=== PATIENT | female | born 1935 | race Caucasian/White ===

== ENCOUNTER 2018-04-12 09:03 | Emergency (ER) | payer MEDICARE, BC ==
--- OUTSIDE RECORDS SUMMARY | 2018-04-12 09:52 | XMS REPORT | Continuity of Care Document ---
:1935 External Reference #:[id number] Author Name Prieto Rehman M.D. Address [address] [facility] [address] [place] [address] Care Team Providers Name Role Phone HCP/LW on file Primary Care Physician Unavailable Payers Type Date Identification Numbers Payment Provider Subscriber Effective: Policy Number: [id number] [facility] PayID[facility] [id number] [address] [facility] [place] [address] Effective: Policy Number: [place] Ind/Ppo/Hmo/Pos Nusrat Reid 2016 [id number] [facility] PayID: [id number] [address] [address] [place] [address] Advance Directives Description No Information Available Problems Date Description Provider Status Onset: 06/02/2015 Seasonal allergic rhinitis Dylon Healy M.D. Active Note: environmental and animal allergens Onset: 06/02/2015 Asthma Dylon Healy M.D. Active Onset: 06/02/2015 Age related macular degeneration Dylon Healy M.D. Active Note: very early on preventive care Onset: 07/27/2015 Mitral valve disorder Dylon Healy M.D. Active Onset: 07/27/2015 Aortic valve disorder Dylon Healy M.D. Active Onset: 07/27/2015 Essential hypertension Dylon Healy M.D. Active Onset: 06/04/2017 Hyperlipidemia Gloria Mcdonald PA Active Onset: 06/19/2017 Paroxysmal supraventricular Hektor, Gloria, PA Active tachycardia Onset: 06/19/2017 Atrial fibrillation Gloria Mcdonald PA Active Family History Date Family Member(s) Problem(s) Comments Father due to Bladder Cancer () Father due to Aortic Aneurysm () - age 69 Mother due to CHF () - age 90 First Daughter Celiac Disease Social History Type Date Description Comments Sex Unknown Education Highest Level Completed Post Grad Marital Status Sanchez has prost ca and a fib s/p- prostatectomy and macular degen retired from [employer] ([employer]) 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, [place], [place]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 Abuse No history of abuse ETOH Use Occassional Alcohol Tobacco Use Start: Unknown Non Smoker Smoking Status Reviewed: Non Smoker 06/04/17 Exercise Type/Frequency Exercises regularly Walking, golf Sun Exposure Uses sunscreen Seat Belt/Car Seat Seat Belt Use - Yes Contraceptive Methods None Age 1st [place] 22 Years Old Additional Info Sexual preference is men Allergies, Adverse Reactions, Alerts Description No Known Drug Allergies Medications Medication Date Status Form Strength Qnty SIG Indications Ordering Provider Chalino 03/17 Active Tablets 5mg 1 tablet Walker by mouth Yfn, DO twice daily Triamcinolone 09/23 Active Cream 0.1% as Yentzer, Acetonide directed Grady MARX as needed Betamethasone 09/04 Active Cream 0.1% 45gm apply to [place], Valerate affected Andres, D.O. areas twice a day as needed Simvastatin 06/04 Active Tablets 20mg 90tab 1 tab by E78.5 Sherie s mouth Prieto, daily at M.D. night to lower cholestero l Areds 05/23 Active daily Metoprolol 11/26 Active Tablets ER 25mg 90tab take 1 Silcoff, Succinate ER 24HR s tablet by Prieto, mouth once M.D. daily Chlorthalidone 07/26 Active Tablets 25mg 90tab take 1 I10 Silcoff, s tablet Prieto, daily for M.D. blood pressure Preservision 06/01 Active Dylon AAlla Rell Healy Symbicort 11/12 Hx Aerosol 160-4.5mc inhale 2 g/Act puffs by - mouth 07/04 twice a /2018 day gargle after use Spiriva 11/12 Hx Aerosol 2.5mcg/Ac two Unknown Respimat t inhalation - s (5mcg) 09/03 once daily (maximum: 2 inhalation s per 24 hours). 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 08/07 Brenda Allergy 06/01 Hx Tablets 180mg otc Dylon Jameson /2015 Carol Healy M.D. 08/07 Ipratropium 00 Hx Solution 0.06% Unknown [place] /0000 - 09/03 Betamethasone Hx Ointment 0.1% Vaishnavicoff, Valerate /0000 Carol Moreau M.D. 09/[address] 20mg Unknown /0000 - 09/03 Immunizations CPT Code Status Date Vaccine Lot # [id number] Given 12/09/2017 Influenza Vaccine, Inactivated, Subunit, [id number] Adjuvanted, For Intrmusc 34928 Given 09/25/2017 Shingrix Zoster (Shingles) Vaccine (HZV) [id number] Recomb,Subnit,Adjuvanted 38261 Given 06/04/2017 Shingrix Zoster (Shingles) Vaccine (HZV) [id number] Recomb,Subnit,Adjuvanted 61082 Given 11/13/2016 Influenza Virus Vaccine, Quadrivalent, Split, [id number] Preservative Free 01567 Given 08/08/2016 Pneumococcal Immunization [id number] 13027 Given 11/10/2015 Influenza Vaccine Split Virus Preservative Free Im [id number] Use 74289 Given 07/21/2015 Adacel or Boostrix, TDaP [id number] 18735 Given 05/02/2015 Prevnar 13 38130 Given 07/20/2012 Zostavax Vital Signs Date Vital Result Comment 03/18/2018 9:34am BP Systolic 130 mmHg BP Diastolic 80 mmHg Height 62.50 inches 5'2.50" Weight 135.00 lb BMI (Body Mass Index) 24.3 kg/m2 12/09/2017 10:01am BP Systolic 134 mmHg BP Diastolic 80 mmHg Weight 135.00 lb 10/28/2017 2:34pm BP Systolic 120 mmHg BP Diastolic 70 mmHg Weight 136.00 lb 09/04/2017 11:20am BP Systolic 134 mmHg BP Diastolic 70 mmHg Height 62.50 inches 5'2.50" Weight 135.00 lb BMI (Body Mass Index) 24.3 kg/m2 06/04/2017 11:58am BP Systolic 149 mmHg BP Diastolic 85 mmHg BP Systolic Recheck 116 mmHg BP Diastolic Recheck 80 mmHg Weight 135.00 lb 11/13/2016 9:37am BP Systolic 118 mmHg BP Diastolic 76 mmHg Weight 134.00 lb 08/08/2016 11:24am BP Systolic 122 mmHg BP Diastolic 80 mmHg Height 62.5 inches 5'2.50" Weight 133.00 lb BMI (Body Mass Index) 23.9 kg/m2 02/09/2016 11:27am BP Systolic 138 mmHg k BP Diastolic 62 mmHg k Heart Rate 70 /min rrr Height 62.5 inches 5'2.50" Weight 135.00 lb BMI (Body Mass Index) 24.3 kg/m2 12/04/2015 11:00am BP Systolic 143 mmHg BP Diastolic 69 mmHg Heart Rate 64 /min Body Temperature 97.9 F Weight 135.00 lb 11/10/2015 10:04am BP Systolic 128 mmHg BP Diastolic 60 mmHg BP Systolic Standing Resting Right Arm 138 mmHg BP Diastolic Standing Resting Right Arm 70 mmHg Heart Rate 70 /min Respiratory Rate 16 /min Weight 136.00 lb 08/10/2015 11:46am BP Systolic 130 mmHg k BP Diastolic 70 mmHg k Heart Rate 90 /min rrrr Respiratory Rate 16 /min 07/27/2015 11:40am BP Systolic 168 mmHg high also in [place] BP Diastolic 85 mmHg high also in [place] Heart Rate 80 /min 07/21/2015 1:50pm BP Systolic 166 mmHg BP Diastolic 80 mmHg Weight 137.00 lb 06/02/2015 2:58pm Heart Rate 70 /min rrr Height 62.75 inches 5'2.75" Weight 139.00 lb BMI (Body Mass Index) 24.8 kg/m2 Results Test Date Facility Test Result H/L Range Note Xray 03/18/2018 [facility] Medicine X-Ray, Knee, <pending> 3 Views, RT Comp Metabolic 12/10/2017 [facility] Sodium 139 mmol/L N 135-145 Panel [phone] Potassium 3.9 mmol/L N 3.5-5.0 Chloride 102 mmol/L N 101-111 Co2 Carbon Dioxide 32 mmol/L N 22-32 Anion Gap 5 mmol/L N 2-11 Glucose 86 mg/dL N 70-100 Blood Urea Nitrogen 15 mg/dL N 6-24 Creatinine 0.63 mg/dL N 0.51-0.95 BUN/Creatinine Ratio 23.8 High 8-20 Calcium 8.8 mg/dL N 8.6-10.3 Total Protein 6.3 g/dL Low 6.4-8.9 Albumin 3.1 g/dL Low 3.2-5.2 Globulin 3.2 g/dL N 2-4 Albumin/Globulin Ratio 1.0 N 1-3 Total Bilirubin 0.50 mg/dL N 0.2-1.0 Alkaline Phosphatase 90 U/L N 34-104 Alt 15 U/L N 7-52 Ast 22 U/L N 13-39 Egfr Non- 90.9 >60 Egfr 110.0 >60 1 Lipid Profile (Trig/Chol/HDL) 12/10/2017 [facility] Triglycerides 122 mg/dL 2 [phone] Cholesterol 181 mg/dL 3 HDL Cholesterol 66.9 mg/dL 4 LDL Cholesterol 90 mg/dL 5 Xray 10/28/2017 [facility] X-Ray, Tib/Fib 2 <pending> Views, Right Comp Metabolic 06/02/2017 [facility] Sodium 142 mmol/L N 139-145 Panel [phone] Potassium 4.0 mmol/L N 3.5-5.0 Chloride 104 mmol/L N 101-111 Co2 Carbon Dioxide 31 mmol/L N 22-32 Anion Gap 7 mmol/L N 2-11 Glucose 82 mg/dL N 70-100 Blood Urea Nitrogen 17 mg/dL N 6-24 Creatinine 0.66 mg/dL N 0.51-0.95 BUN/Creatinine Ratio 25.8 High 8-20 Calcium 8.8 mg/dL N 8.6-10.3 Total Protein 6.3 g/dL Low 6.4-8.9 Albumin 3.1 g/dL Low 3.2-5.2 Globulin 3.2 g/dL N 2-4 Albumin/Globulin Ratio 1.0 N 1-3 Total Bilirubin 0.40 mg/dL N 0.2-1.0 Alkaline Phosphatase 88 U/L N 34-104 Alt 13 U/L N 7-52 Ast 22 U/L N 13-39 Egfr Non- 86.2 >60 Egfr 110.8 >60 6 Lipid Profile (Trig/Chol/HDL) 06/02/2017 [facility] Triglycerides 105 mg/dL 7 [phone] Cholesterol 230 mg/dL 8 HDL Cholesterol 65.7 mg/dL 9 LDL Cholesterol 143 mg/dL 10 Laboratory test finding 02/09/2016 [facility] Magnesium 2.2 mg/dL N 1.9-2.7 [phone] Basic Metabolic Panel 02/09/2016 [facility] Sodium 137 mmol/L N 133- 145 [phone] Potassium 3.9 mmol/L N 3.5-5.0 Chloride 99 mmol/L Low 101-111 Co2 Carbon Dioxide 32 mmol/L N 22-32 Anion Gap 6 mmol/L N 2-11 Glucose 81 mg/dL N 70-100 Blood Urea Nitrogen 15 mg/dL N 6-24 Creatinine 0.68 mg/dL N 0.51-0.95 BUN/Creatinine Ratio 22.1 High 8-20 Calcium 8.7 mg/dL N 8.6-10.3 Egfr Non- 83.7 N >60 Egfr 107.6 N >60 11 Culture Urine Inhouse 12/04/2015 In House Colonies 12/04-12/05 12 Urine Micro Inhouse 12/04/2015 In House Ua WBC 10-15 Ua RBC 2-4 Ua Casts - Ua Epi 0-1 Ua Other few clumps of WBC Ua Glucose - Ua Bilirubin - Ua Ketones - Ua Specific [place] 1.025 Ua Blood 2+ Ua PH 6.5 Ua Protein - Ua Urobilinogen - Ua Nitrite - Ua Leukocytes 2+ Urine Micro Inhouse 11/10/2015 In House Ua WBC - Ua RBC - Ua Casts - Ua Epi - Ua Other - Ua Glucose - Ua Bilirubin - Ua Ketones - Ua Specific [place] 1.005 Ua Blood - Ua PH 6.0 Ua Protein - Ua Urobilinogen - Ua Nitrite - Ua Leukocytes - Xray 11/10/2015 [facility] X-Ray, Chest, 2 wnl 13 Views Basic Metabolic 08/10/2015 [facility] Sodium 138 mmol/L N 133-145 Panel [phone] Potassium 3.9 mmol/L N 3.5-5.0 Chloride 100 mmol/L Low 101-111 Co2 Carbon Dioxide 30 mmol/L N 22-32 Anion Gap 8 mmol/L N 2-11 Glucose 85 mg/dL N 70-100 Blood Urea Nitrogen 22 mg/dL N 6-24 Creatinine 0.59 mg/dL N 0.51-0.95 BUN/Creatinine Ratio 37.3 High 8-20 Calcium 9.1 mg/dL N 8.6-10.3 Egfr Non- 98.6 N >60 Egfr 126.8 N >60 14 Comp Metabolic Panel 07/21/2015 [facility] Sodium 138 mmol/L N 133- 145 [phone] Potassium 3.9 mmol/L N 3.5-5.0 Chloride 102 mmol/L N 101-111 Co2 Carbon Dioxide 30 mmol/L N 22-32 Anion Gap 6 mmol/L N 2-11 Glucose 91 mg/dL N 70-100 Blood Urea Nitrogen 11 mg/dL N 6-24 Creatinine 0.61 mg/dL N 0.51-0.95 BUN/Creatinine Ratio 18.0 N 8-20 Calcium 8.8 mg/dL N 8.6-10.3 Total Protein 6.7 g/dL N 6.4-8.9 Albumin 3.4 g/dL N 3.2-5.2 Globulin 3.3 g/dL N 2-4 Albumin/Globulin Ratio 1.0 N 1-3 Total Bilirubin 0.40 mg/dL N 0.2-1.0 Alkaline Phosphatase 81 U/L N 34-104 Alt 14 U/L N 7-52 Ast 21 U/L N 13-39 Egfr Non- 94.9 N >60 Egfr 122.0 N >60 15 CBC Auto Diff 07/21/2015 [facility] White Blood Count 5.7 10^3/uL N 3.5-10.8 [phone] Red Blood Count 4.07 10^6/uL N 4.0-5.4 Hemoglobin 12.9 g/dL N 12.0-16.0 Hematocrit 40 % N 35-47 Mean Corpuscular Volume 98 fL High 80-97 Mean Corpuscular Hemoglobin 32 pg High 27-31 Mean Corpuscular HGB Conc 32 g/dL N 31-36 Red Cell Distribution Width 13 % N 10.5-15 Platelet Count 216 10^3/uL N 150-450 Mean Platelet Volume 9 um3 N 7.4-10.4 Abs Neutrophils 3.8 10^3/uL N 1.5-7.7 Abs Lymphocytes 1.2 10^3/uL N 1.0-4.8 Abs Monocytes 0.5 10^3/uL N 0-0.8 Abs Eosinophils 0 10^3/uL N 0-0.6 Abs Basophils 0.1 10^3/uL N 0-0.2 Abs Nucleated RBC 0 10^3/uL N Granulocyte % 67.1 % N 38-83 Lymphocyte % 21.3 % Low 25-47 Monocyte % 9.7 % High 1-9 Eosinophil % 0.8 % N 0-6 Basophil % 1.1 % N 0-2 Nucleated Red Blood Cells % 0 N Order 07/21/2015 [facility] EKG W/ Reading NSR wnl 1 Because ethnic data is not always readily available, this report includes an eGFR for both -Americans and non- Americans. The National Kidney Disease Education Program (NKDEP) does not endorse the use of the MDRD equation for patients that are not between the ages of 18 and 70, are , have extremes of body size, muscle mass, or nutritional status, or are non- or non-. According to the National Kidney Foundation, irrespective of diagnosis, the stage of the disease is based on the level of kidney function: Stage Description GFR(mL/min/1.73 m(2)) 1 Kidney damage with normal or decreased GFR 90 2 Kidney damage with mild decrease in GFR 60-89 3 Moderate decrease in GFR 30-59 4 Severe decrease in GFR 15-29 5 Kidney failure <15 (or dialysis) 2 Desirable: <150 Borderline High: 150-199 High: 200-499 Very High: >500 3 Desirable: <200 Borderline High: 200-239 High: >239 4 Low: <40 Desirable: 40-60 High: >60 5 Desirable: <100 Near Optimal: 100-129 Borderline High: 130-159 High: 160-189 Very High: >189 6 Because ethnic data is not always readily available, this report includes an eGFR for both -Americans and non- Americans. The National Kidney Disease Education Program (NKDEP) does not endorse the use of the MDRD equation for patients that are not between the ages of 18 and 70, are , have extremes of body size, muscle mass, or nutritional status, or are non- or non-. According to the National Kidney Foundation, irrespective of diagnosis, the stage of the disease is based on the level of kidney function: Stage Description GFR(mL/min/1.73 m(2)) 1 Kidney damage with normal or decreased GFR 90 2 Kidney damage with mild decrease in GFR 60-89 3 Moderate decrease in GFR 30-59 4 Severe decrease in GFR 15-29 5 Kidney failure <15 (or dialysis) 7 Desirable: <150 Borderline High: 150-199 High: 200-499 Very High: >500 8 Desirable: <200 Borderline High: 200-239 High: >239 9 Low: <40 Desirable: 40-60 High: >60 10 Desirable: <100 Near Optimal: 100-129 Borderline High: 130-159 High: 160-189 Very High: >189 11 Because ethnic data is not always readily available, this report includes an eGFR for both -Americans and non- Americans. The National Kidney Disease Education Program (NKDEP) does not endorse the use of the MDRD equation for patients that are not between the ages of 18 and 70, are , have extremes of body size, muscle mass, or nutritional status, or are non- or non-. According to the National Kidney Foundation, irrespective of diagnosis, the stage of the disease is based on the level of kidney function: Stage Description GFR(mL/min/1.73 m(2)) 1 Kidney damage with normal or decreased GFR 90 2 Kidney damage with mild decrease in GFR 60-89 3 Moderate decrease in GFR 30-59 4 Severe decrease in GFR 15-29 5 Kidney failure <15 (or dialysis) 12 void, turbid, yellow 13 wnl 14 Because ethnic data is not always readily available, this report includes an eGFR for both -Americans and non- Americans. The National Kidney Disease Education Program (NKDEP) does not endorse the use of the MDRD equation for patients that are not between the ages of 18 and 70, are , have extremes of body size, muscle mass, or nutritional status, or are non- or non-. According to the National Kidney Foundation, irrespective of diagnosis, the stage of the disease is based on the level of kidney function: Stage Description GFR(mL/min/1.73 m(2)) 1 Kidney damage with normal or decreased GFR 90 2 Kidney damage with mild decrease in GFR 60-89 3 Moderate decrease in GFR 30-59 4 Severe decrease in GFR 15-29 5 Kidney failure <15 (or dialysis) 15 Because ethnic data is not always readily available, this report includes an eGFR for both -Americans and non- Americans. The National Kidney Disease Education Program (NKDEP) does not endorse the use of the MDRD equation for patients that are not between the ages of 18 and 70, are , have extremes of body size, muscle mass, or nutritional status, or are non- or non-. According to the National Kidney Foundation, irrespective of diagnosis, the stage of the disease is based on the level of kidney function: Stage Description GFR(mL/min/1.73 m(2)) 1 Kidney damage with normal or decreased GFR 90 2 Kidney damage with mild decrease in GFR 60-89 3 Moderate decrease in GFR 30-59 4 Severe decrease in GFR 15-29 5 Kidney failure <15 (or dialysis) Procedures Date Code Description Status 03/18/2018 90563 X-Ray Knee,Ap&Lateral Oblique Views Completed 03/18/2018 41511 X-Ray Knee,Ap&Lateral Oblique Views Completed 10/28/2017 91439 X-Ray Tibia And Fibula,Ap & Lateral Views Completed 10/28/2017 88706 X-Ray Tibia And Fibula,Ap & Lateral Views Completed 06/06/2017 03327 Dexa Bone Density Study One Or More Sites Axial Completed Skeleton 06/06/2017 [id number] Bone Mineral Density Test Completed 06/01/2017 41352309 Mammogram Completed 11/11/2015 21171 ECG Monitor/Review & Interpretation, W/Visual Completed Superimpos Scan 11/11/2015 12722 ECG Monitor/Recording W/Scanning Completed 11/10/2015 93535 ECG Monitor/Review & Interpretation, W/Visual Completed Superimpos Scan 11/10/2015 81579 ECG Monitor/Recording W/Scanning Completed 11/10/2015 96987 Electrocardiogram Complete Completed 11/10/2015 51871 X-Ray Chest Two Views Completed 07/21/2015 29544 Electrocardiogram Complete Completed 07/21/2015 72580 X-Ray Chest Two Views Completed Encounters Type Date Location Provider Dx Diagnosis Office Visit 03/18/2018 Main Office Gloria Mcdonald PA I10 Essential ( primary) 9:20a hypertension M25.561 Pain in right knee H91.93 Unspecified hearing loss, bilateral I48.91 Unspecified atrial fibrillation Office Visit 12/09/2017 9:45a Main Office Gloria Mcdonald PA I10 Essential (primary) hypertension I48.91 Unspecified atrial fibrillation H35.30 Unspecified macular degeneration Z23 Encounter for immunization Office Visit 10/28/2017 2:30p Main Office Gloria Mcdonald PA M79.661 Pain in right lower leg S80.11xA Contusion of right lower leg, initial encounter W20.8xxA Oth cause of strike by thrown, projected or fall obj, init Y92.[address] in single-family (private) house as place Office Visit 09/04/2017 11:05a Main Office Gloria Mcdonald PA I10 Essential (primary) hypertension I48.91 Unspecified atrial fibrillation L57.0 Actinic keratosis H35.30 Unspecified macular degeneration Office Visit 06/04/2017 11:20a Main Office Gloria Mcdonald PA I10 Essential (primary) hypertension E78.5 Hyperlipidemia, unspecified Z23 Encounter for immunization Z12.31 Encntr screen mammogram for malignant neoplasm of breast Z13.820 Encounter for screening for osteoporosis Z41.8 Encntr for oth proc for purpose oth than [facility] E78.00 Pure hypercholesterolemia, unspecified Office Visit 11/13/2016 9:20a Main Office Gloria Mcdonald PA I10 Essential (primary) hypertension Z23 Encounter for immunization Office Visit 08/08/2016 11:15a Main Office Dylon Jameson I1Bud Essential ( primary) Rell Healy hypertension I47.1 Supraventricular tachycardia I34.0 Nonrheumatic mitral (valve) insufficiency Z71.89 Other specified counseling Z23 Encounter for immunization Z41.8 Encntr for oth proc for purpose oth than [facility] Office Visit 02/09/2016 11:15a Main Office Dylon Healy, E83.42 Hypomagnesemia Rell I10 Essential (primary) hypertension I47.1 Supraventricular tachycardia J31.0 Chronic rhinitis Office Visit 12/04/2015 10:15a Main Office Prieto Rehman M.D. R30.0 Dysuria R35.0 Frequency of micturition N30.00 Acute cystitis without hematuria Office Visit 11/10/2015 10:00a Main Office Dylon Nunes Essential ( primary) Rell Healy hypertension I34.0 Nonrheumatic mitral (valve) insufficiency I35.1 Nonrheumatic aortic (valve) insufficiency R07.89 Other chest pain Z23 Encounter for immunization R00.2 Palpitations Office Visit 08/10/2015 11:40a Main Office Dylon Jameson I1Bud Essential ( primary) Rell Healy hypertension Office Visit 07/27/2015 11:40a Main Office Dylon Jameson I34.0 Nonrheumatic mitral Rell Healy (valve) insufficiency I35.1 Nonrheumatic aortic (valve) insufficiency I10 Essential (primary) hypertension I36.1 Nonrheumatic tricuspid (valve) insufficiency Office Visit 07/21/2015 1:45p Main Office Dylon Jameson H26.9 Unspecified Rell Healy cataract J30.1 Allergic rhinitis due to pollen Z71.89 Other specified counseling R01.1 Cardiac murmur, unspecified Z01.818 Encounter for other preprocedural examination Z23 Encounter for immunization J45.20 Mild intermittent asthma, uncomplicated E78.0 Pure hypercholesterolemia Office Visit 06/02/2015 2:30p Main Office Dylon Healy, J45.998 Other asthma Rell J30.1 Allergic rhinitis due to pollen Plan of Treatment 10/28/2017 - Gloria Mcdonald, PAM79.661 Pain in right lower legComments:Right barriga contusion, Xray negative. Recommended rest and elevation, tylenol if needed for pain. Recheck if sx not improving.S80.11xA Contusion of right lower leg, initial yxeooaftwG20.8xxA Other cause of strike by thrown, projected or falling object, initial usyxqxgnqV72.[address] in single-family ( private) house as the place of occurrence of the external cause
[2018-04-12 10:00] VITALS: BP 120/54
--- NOTE | 2018-04-12 10:17 | UC ---
Respiratory Complaint HPI - HPI Summary HPI Summary: 82-year-old woman comes in with a chief complaint of 2 days of upper respiratory tract infection symptoms chest congestion and wheezing. No fevers or chills. No sore throat. She does have some rhinorrhea. No ear pain. Has not tried any [id number] medications. Denies any chest pain or calf swelling or pain. Patient has had asthma symptoms in the past and she has used inhalers in the past. Not a smoker. - History of Current Complaint Chief Complaint: UCRespiratory Stated Complaint: UPPER RESPITORY Time Seen by Provider: 04/12/18 10:08 Pain Intensity: 0 - Allergies/Home Medications Allergies/Adverse Reactions: Allergies Allergy/AdvReac Type Severity Reaction Status Date / Time No Known Allergies Allergy Verified 01/26/16 21:34 Home Medications: Home Medications Apixaban* [Eliquis*] 5 mg PO BID 04/12/18 [History Confirmed 04/12/18] Simvastatin 1 dose PO DAILY 04/12/18 [History Confirmed 04/12/18] PMH/Surg Hx/FS Hx/Imm Hx Previously Healthy: Yes Cardiovascular History: Hypertension Respiratory History: Asthma Other History Of: Negative For: HIV, Hepatitis B, Hepatitis C, Anticoagulant Therapy - Surgical History Surgical History: Yes Surgery Procedure, Year, and Place: B/L CATARACT SX - Family History Known Family History: Positive: Cardiac Disease Negative: Hypertension - Social History Alcohol Use: Occasionally Substance Use Type: None Smoking Status (MU): Never Smoked Tobacco Review of Systems All Other Systems Reviewed And Are Negative: Yes Constitutional: Positive: Negative Skin: Positive: Negative Eyes: Positive: Negative ENT: Positive: Nasal Discharge Respiratory: Positive: Cough, Other - wheezing Cardiovascular: Positive: Negative Gastrointestinal: Positive: Negative Motor: Positive: Negative Neurovascular: Positive: Negative Musculoskeletal: Positive: Negative Neurological: Positive: Negative Psychological: Positive: Negative Is Patient Immunocompromised?: No Physical Exam Triage Information Reviewed: Yes Appearance: No Pain Distress, Well-Nourished, Ill-Appearing - mild Vital Signs: Initial Vital Signs Temp 98.7 F 04/12/18 09:56 Pulse 96 04/12/18 09:56 Resp 17 04/12/18 09:56 BP 120/54 04/12/18 09:56 Pulse Ox 96 04/12/18 09:56 Vital Signs Reviewed: Yes Eye Exam: Normal Eyes: Positive: Conjunctiva Clear ENT: Positive: Pharynx normal, Nasal congestion, Nasal drainage, TMs normal Neck exam: Normal Neck: Positive: Supple Respiratory: Positive: No respiratory distress, Wheezing Cardiovascular: Positive: RRR Musculoskeletal Exam: Normal Musculoskeletal: Positive: Strength Intact, ROM Intact, No Edema, Other: - no calf tenderness Neurological Exam: Normal Neurological: Positive: Alert, Muscle Tone Normal Psychological Exam: Normal Psychological: Positive: Age Appropriate Behavior Skin Exam: Normal UC Diagnostic Evaluation - Laboratory O2 Sat by Pulse Oximetry: 96 Respiratory Course/Dx - Course Course Of Treatment: DISCUSSED VIRAL VERSES BACTERIAL INFECTION AND THE ROLE OF ANTIBIOTICS. THE PATIENT WISHES TO BE ON ANTIBIOTIC AT THIS TIME. - Differential Dx/Diagnosis Provider Diagnosis: Bronchitis with bronchospasm Discharge - Sign-Out/Discharge Documenting (check all that apply): Patient Departure All imaging exams completed and their final reports reviewed: No Studies - Discharge Plan Condition: Stable Disposition: HOME Prescriptions: Albuterol HFA INHALER* [Ventolin HFA Inhaler*] 2 puff INH Q4H PRN #1 mdi PRN Reason: Wheezing Azithromyxin ROBYN (NF) [Z-Robyn (Zithromax) 250 mg tabs #6] 2 tab PO .TODAY, THEN 1 DAILY #6 tab Patient Education Materials: Acute Bronchitis (ED), Bronchospasm (ED) Referrals: Tamara JENNINGS,Gloria Castro [Primary Care Provider] - Additional Instructions: FOLLOW UP WITH YOUR DOCTOR IF NOT COMPLETELY IMPROVED. GET RECHECKED FOR ANY WORSENING OF YOUR CONDITION OR QUESTIONS OR CONCERNS. - Billing Disposition and Condition Condition: STABLE Disposition: Home
== END 2018-04-12 10:23 | disposition home or self-care (01) ==
LOC: UCCORT 09:03
DX: J45.909 Unspecified asthma, uncomplicated (principal); J34.89 Other specified disorders of nose and nasal sinuses; I10 Essential (primary) hypertension
CPT/HCPCS: 99212; G0463